=== PATIENT | male | born 1965 | race Caucasian/White ===

== ENCOUNTER 2025-10-02 09:29 | Outpatient (CLI) | payer BC, MEDICARE, SELFPAY | END 2025-10-02 09:30 | disposition home or self-care (01) | PROVIDERS: PCP Nurse Practitioner Family; Visit Provider Nurse Practitioner Family | DX: S81.012A Laceration without foreign body, left knee, initial encounter (principal); W31.89XA Contact with other specified machinery, initial encounter; G60.8 Other hereditary and idiopathic neuropathies; I47.29 Other ventricular tachycardia; J44.9 Chronic obstructive pulmonary disease, unspecified; Z85.118 Personal history of other malignant neoplasm of bronchus and lung | CPT/HCPCS: 11042; G0463 ==